=== PATIENT | female | born 1995 | race Caucasian/White ===

== ENCOUNTER → 2017-12-02 | Emergency (ER) | payer OTHER ==
[~2017-12-02] VITALS: Ht 160 cm; Wt 65.8 kg
[~2017-12-02] MED LIST: CEFADROXIL500 MG PO; KETO10TA2 PO
== END | disposition home or self-care (01) ==
LOC: ER 18:01
DX: K52.9 Noninfective gastroenteritis and colitis, unspecified (principal)

== ENCOUNTER → 2018-07-26 | Emergency (ER) | payer OTHER ==
[~2018-07-26] VITALS: Ht 160 cm; Wt 83.9 kg
== END | disposition left against medical advice (07) ==
LOC: ER 18:59
DX: Z53.20 Procedure and treatment not carried out because of patient's decision for unspecified reasons (principal)

== ENCOUNTER 2018-09-10 01:18 | Emergency (ER) | payer OTHER ==
[~2018-09-10] VITALS: Ht 160 cm; Wt 83.9 kg
[2018-09-10] MEDS ORDERED: ZYRTEC10 MG PO (07:53)
[2018-09-10] MEDS ORDERED: ZYNCOF 20-400120 ML PO (07:53)
[2018-09-10] MEDS ORDERED: DOLOGESIC 500-1 EACH PO (07:53)
== END 2018-09-10 07:58 | disposition home or self-care (01) ==
LOC: ER 01:18
DX: J06.9 Acute upper respiratory infection, unspecified (principal)

== ENCOUNTER 2019-02-27 22:12 | Emergency (ER) | payer OTHER ==
[~2019-02-27] VITALS: Ht 160 cm; Wt 81.6 kg
[~2019-02-27 22:12] MED LIST changes: +DOLOGESIC 500-1 EACH PO; +ZYNCOF 20-400120 ML PO; +ZYRTEC10 MG PO
[2019-02-28] MEDS ORDERED: ZANTAC150 MG PO (00:57)
[2019-02-28] MEDS ORDERED: INTESTINEX680 M1 PO (00:57)
== END 2019-02-28 01:12 ==
LOC: ER 22:12
DX: K29.70 Gastritis, unspecified, without bleeding (principal); R10.13 Epigastric pain

== ENCOUNTER 2019-04-08 16:40 | Emergency (ER) | payer OTHER ==
[~2019-04-08] VITALS: Ht 160 cm; Wt 81.6 kg
[~2019-04-08 16:40] MED LIST changes: +INTESTINEX680 M1 PO; +ZANTAC150 MG PO
== END 2019-04-08 17:45 | disposition home or self-care (01) ==
LOC: ER 16:40
DX: S01.82XA Laceration with foreign body of other part of head, initial encounter (principal); W18.39XA Other fall on same level, initial encounter; Y93.89 Activity, other specified; Y92.098 Other place in other non-institutional residence as the place of occurrence of the external cause; Y99.8 Other external cause status

== ENCOUNTER → 2019-10-11 | Emergency (ER) | payer OTHER ==
[~2019-10-11] VITALS: Ht 160 cm; Wt 72.6 kg
== END | disposition left against medical advice (07) ==
LOC: ER 20:16
DX: Z53.20 Procedure and treatment not carried out because of patient's decision for unspecified reasons (principal)

== ENCOUNTER 2020-05-03 14:33 | Emergency (ER) | payer OTHER ==
[~2020-05-03] VITALS: Ht 160 cm; Wt 77.1 kg
== END 2020-05-03 17:47 | disposition home or self-care (01) ==
LOC: ER 14:33
DX: S90.31XA Contusion of right foot, initial encounter (principal); W22.8XXA Striking against or struck by other objects, initial encounter; Y93.89 Activity, other specified; Y92.098 Other place in other non-institutional residence as the place of occurrence of the external cause; Y99.8 Other external cause status

== ENCOUNTER 2021-03-30 06:51 | Inpatient (IN) | payer OTHER ==
[~2021-03-30] VITALS: Ht 160 cm; Wt 77.0 kg
[2021-04-02] MEDS ORDERED: PERCOCET 5-3251 EACH PO (13:54)
== END 2021-04-02 15:23 | disposition home or self-care (01) | DRG 419 ==
LOC: ER 06:51 → SURH 13:39
PROVIDERS: ADMIT Surgery; ATTEND Surgery
PROC: BF532Z0 Other Imaging of Gallbladder and Bile Ducts using Fluorescing Agent, Intraoperative (ICD-10-PCS; 2021-03-31)
PROC: 0FT44ZZ Resection of Gallbladder, Percutaneous Endoscopic Approach (ICD-10-PCS; principal; 2021-03-31 07:30)
DX: K80.10 Calculus of gallbladder with chronic cholecystitis without obstruction (principal); E86.0 Dehydration; E87.8 Other disorders of electrolyte and fluid balance, not elsewhere classified; D72.828 Other elevated white blood cell count

== ENCOUNTER 2021-04-09 00:47 | Emergency (ER) | payer OTHER ==
[~2021-04-09] VITALS: Ht 160 cm; Wt 80.7 kg
[~2021-04-09 00:47] MED LIST changes: +PERCOCET 5-3251 EACH PO
[2021-04-09] MEDS ORDERED: ULTRAM50 MG PO ×2 (06:10→06:11)
[2021-04-09] MEDS ORDERED: ZYNCOF 20-400120 ML PO (06:11)
[2021-04-09] MEDS ORDERED: ALBUTEROL2.5 MG/3 M IH (06:11)
[2021-04-09] MEDS ORDERED: SYMBICORT 16010.2 GM IH (06:11)
== END 2021-04-09 06:21 | disposition home or self-care (01) ==
LOC: ER 00:47
DX: J45.998 Other asthma (principal)